=== PATIENT | female | born 1990 | race Caucasian/White ===

== ENCOUNTER 2017-04-25 11:45 | Emergency (ER) | payer MEDICAID, OTHER ==
[~2017-04-25] VITALS: Ht 162.6 cm; Wt 56.4 kg
[2017-04-25 11:47] VITALS: BP 119/76
[2017-04-25 12:28] LABS: HEMATOCRIT 40.8 % (34.6-47.8); HEMOGLOBIN 13.5 g/dL (11.7-16.4); WHITE BLOOD COUNT 6.4 x10^3/uL (3.4-10)
== END 2017-04-25 13:09 | disposition home or self-care (01) ==
LOC: ED 13:03
DX: N93.8 Other specified abnormal uterine and vaginal bleeding (principal)
CPT/HCPCS: 36415; 84703; 85025; 99283